=== PATIENT | male | born 2000 | race Caucasian/White ===

== ENCOUNTER 2025-01-24 09:50 | Emergency (ER) | payer BC, SELFPAY ==
[2025-01-24 09:57] VITALS: BP 143/65; PULSE 98; RESP 16; TEMP 36.8; O2SAT 99
--- NOTE | 2025-01-24 10:06 | ED_ITS ---
HPI - URI/Sore Throat General Chief Complaint: Upper Respiratory Infection Stated Complaint: Chest Heavy/Cough Time Seen by Provider: 01/24/25 10:16 Source: patient and RN notes reviewed Mode of arrival: ambulatory Limitations: no limitations History of Present Illness HPI Narrative: 24 y/o male presented for c/o nasal congestion and drainage, body aches, and cough. Onset 2 days. Has not taken anything for symptoms. denies sob, wheezing, n/v/d/f/c. MD elicited complaint: cough Related Data Allergies Allergy/AdvReac Type Severity Reaction Status Date / Time No Known Allergies Allergy Verified 01/24/25 10:01 Review of Systems Review of Systems: CONSTITUTIONAL: Endorses malaise, body aches, denies chills, sweats, fever EYES: Denies visual changes, redness, or discharge ENT: Reports rhinorrhea, congestion, denies sinus pain, otalgia, sore throat CARDIOVASCULAR: Denies chest pain, palpitations, edema RESPIRATORY: Reports cough, post nasal drainage. Denies dyspnea GASTROINTESTINAL: Denies abdominal pain, nausea, vomiting, diarrhea SKIN: Denies rash NEUROLOGIC: Denies headache Exam Narrative: GENERAL: well-appearing, nontoxic no acute distress. EYES: conjunctivae clear ENT: Mucous membranes moist. TM pearly baker with dull light reflex bilaterally; no tragal tenderness. Oropharynx not erythematous without lesions or exudate, no drooling, no hoarseness, no trismus, uvula midline. No tripod positioning, muffled voice, soft palate or pharyngeal wall bulging NECK: Supple. No lymphadenopathy CHEST: Clear to auscultation, breath sounds equal. HEART: Regular rate and rhythm. SKIN: Warm, dry, no rash. NEURO: Alert and oriented x3. PSYCH: Normal mood and affect Course Course Emergency Course: Patient is aware of diagnosis, understands and agrees to treatment plan. Anticipatory guidance given. Patient agrees to follow-up as directed and is aware of reasons to seek care at the emergency department. Portions of this record may have been created with voice recognition software Level of Care: Express Care Visit Vital Signs Vital signs: Vital Signs Temperature 98.3 F 01/24/25 09:57 Pulse Rate 98 01/24/25 09:57 Respiratory Rate 16 01/24/25 09:57 Blood Pressure 143/65 H 01/24/25 09:57 Pulse Oximetry 99 01/24/25 09:57 Oxygen Delivery Room Air 01/24/25 09:57 Temperature 98.3 F 01/24/25 09:57 Pulse Rate 98 01/24/25 09:57 Respiratory Rate 16 01/24/25 09:57 Blood Pressure 143/65 H 01/24/25 09:57 Pulse Oximetry 99 01/24/25 09:57 Oxygen Delivery Room Air 01/24/25 09:57 reviewed MDM - URI/Sore Throat MDM Narrative Medical decision making narrative: Discussed physical exam findings, neg flu and covid. Advised supportive measures and signs/symptoms to go to the ER. Pt is appropriate for outpt treatment and f/u. Differential Diagnosis Differential diagnosis: Likely upper respiratory infection, sinusitis and viral infection Discharge Plan Discharge Clinical Impression: Viral infection Patient Disposition: Home Condition: Stable Instructions: Antibiotic Form, Upper Respiratory Infection (ED) Additional Instructions: Your rapid covid/flu test was negative today. It may be too early to detect the virus, therefore we recommend retesting at home in 1-2 days Continue to follow general precautions: frequent handwashing, wear a mask, isolate/social distance, and avoid crowds if you have a fever. You must be fever free for 24 hours without the use of fever reducing medication (Tylenol/ibuprofen) before returning to work/school/crowds. Recommendations; Flonase spray and Zyrtec (or Claritin/Lanny) over the counter Cough syrup may cause drowsiness; avoid driving or take it at night time. Tylenol 1000mg every 8 hours as needed for pain Symptomatic treatment includes: rest, fluids, and increase humidity of the air at home. Follow up with your primary care provider in 1 week. Go to the ER for worsening symptoms or concerns. Patient Language: Ghanaian Follow-up/Referrals: UNKNOWN,DOCTOR [Primary Care Provider] Time of Disposition: 10:26
[2025-01-24 10:29] LABS: EDCOVIDSCREEN Negative (Negative); EDINFLUASCREEN Negative (Negative); EDINFLUBSCREEN Negative (Negative)
--- OUTSIDE RECORDS SUMMARY | 2025-01-24 10:41 | XMS_ITS | Clinical Summary ---
Author Organization [address] Address [address] [place] [id number] Care Team Providers Care Gas Main And Line Fitter Name Role Phone ANA MARIA Last Jr., Fermín Rboles Primary Care Provide r Ivette Laughlin MD Unavailable [phone] Allergies No known active allergies Medications cholecalciferol (VITAMIN D3) 2,000 unit capsule 1 capsule (2,000 Units total) Active pantoprazole DR (PROTONIX) 20 mg EC tabletIndication s:Gastroesophage al reflux disease without esophagitis Take 1 tablet (20 mg total) by mouth daily 30 tablet 11 12/27/2023 Active omega 5-ecm-sof-fish oil (Fish OiL) 1,000 mg (120 mg-180 mg) capsule Active tasha extract 500 mg capsule Active Active Problems Problem Noted Date Diagnosed Date Et (Eustachian tube disorder), left 08/22/2018 Assessment & Plan (08/22/2018 11:24 AM CDT): Patient/parent was counseled on medication risk, side effects, and possible complications. Patient/parent was counseled on how to properly take the medication and to call with any adverse reactions. Patient/parent stated understanding. If fails may need to see ent Social anxiety disorder 03/02/2018 Assessment & Plan (08/22/2018 11:12 AM CDT): Psychological condition is improving with treatment. Continue current treatment regimen. 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 Treatment: Imaging Ultrasound and Referral Urologist Follow up in 1 month with PCP Situational anxiety 03/02/2018 12/26/19 24 Immunizations Immunization Administration Dates Next Due DTaP 02/09/2005, 0,06/06/1999,04/07/1999, 02/04/1999 Hep A, Pediatric 12/13/2006,01/07/2006 Hep B, Adolescent or Pediatric 12/23/1999,1998,02/04/1999 HiB 12/23/1999,04/07/1999,02/04/1999 IPV 02/09/2005,12/23/1999,04/07/1999 ,02/04/1999 Influenza, Trivalent, IM (MDV) 04/04/2003,2001 Influenza, Unspecified 01/31/2024(Deferr ed: Patient decision),01/24/2024(Deferred: Patient decision),02/20/2023(Deferred: Patient decision),02/20/2023(Deferred: Patient decision) MMR 02/09/2005,12/23/1999 Meningococcal MCV4P (Menactra) 12/27/2015,2012 Pneumococcal Conjugate 7-Valent 06/10/2000,03/04 Tdap 03/15/2010 Varicella 12/13/2006,03/04/2000 Medical History Medical History Date Comments Seasonal allergies Finger fracture, left 2012 salter anna ris II left 5th finger with reduction Concussion 2011 Acne 12/27/2015 ADD (attention deficit disor [place]) without hyperactivity 01/31/2018 Situational anxiety 03/02/2018 Social anxiety disorder 03/02/2018 Vitamin D deficiency 11/21/2017 Family History Medical History Relation Name Comments Colon cancer Maternal Grandfather Rectal cancer Maternal Grandfather Autoimmune disease Maternal Grandmother Breast cancer Maternal Grandmother Sjogren's syndrome Maternal Grandmother Skin cancer Paternal Grandfather Liver cancer Paternal Grandmother Relation Name Status Comments Brother Alive Father Alive Maternal Grandfather Maternal Grandmother Alive Mother Alive palpitations Paternal Grandfather Paternal Grandmother Social History Tobacco Use Types Packs/Day Years Used Date Smoking Tobacco: Never Cigarettes Qu it: 11/2018 Smokeless Tobacco: Never Tobacco Cessation:Counseling Given: Not Answered Alcohol Use Standard Drinks/Week Comments Not Currently 0 (1 standard drink = 0.6 oz pur e alcohol) Socially AUDIT-C Answer Date Recorded Q1: How often do you have a drink containing alc ohol? Monthly or less 01/24/2024 Q2: How many drinks containi ng alcohol do you have on a typical day when you are drinking? 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 Gender Identity Not on file Sexual Orientation Not on file Obstetrics History Last Filed Vital Signs Vital Sign Reading Time Taken Comments Blood Pressure 118/70 01/24/2024 8:35 AM CDT Pulse 89 01/24/2024 8:35 AM CDT Temperature 36.2 C (97.2 F) 01/24/2024 8:35 AM CDT Respiratory Rate 16 01/24/2024 8:35 AM CDT Oxygen Saturation 98% 01/24/2024 8:35 AM CDT Inhaled Oxygen Concentration - - Weight 96.2 kg (212 lb) 01/24/2024 8:35 AM CDT Height 177.8 cm (5' 10) 01/24/2024 8:35 AM CDT Body Mass Index 30.42 01/24/2024 8:35 AM CDT Plan of Treatment Health Maintenance Due Date Last Done Comments Hepatitis C Screening 1998 HPV Vaccines (1 - Male 3-dos e series) 2013 DTaP/Tdap/Td Vaccine (7 - Td or Tdap) 03/15/2020 03/15/2010, 02/09/2005, 03/04/2000, Additional history exists Regular Well Visit/Exam 18-64 12/26/2024 12/27/2023 Influenza Vaccine (#1) 2025 04/04/2003, 2001 Depression Screening 01/23/2025 01/24/2024, 02/03/2019, 02/03/2019, Additional history exists Hepatitis B Screening Completed 12/23/1999 , 04/07/1999, 02/04/1999 Pneumococcal vaccine <65 Completed 06/10/2000, 02/14 Varicella Vaccines Completed 12/13/2006, 03/04/2000 Insurance [employer] OOS Care Teams Gas Main And Line Fitter Relationship Specialty Start Date End Date Fermín Last Jr., PA PCP - General Family Medicine 01/19/19 Ivette Laughlin MD [address] [place] [address] Consulting Physician Family Medicine 01/19/19
== END 2025-01-24 10:33 | disposition home or self-care (01) ==
PROVIDERS: Emergency Provider Nurse Practitioner Family
DX: B34.9 Viral infection, unspecified (principal); Z20.822 Contact with and (suspected) exposure to COVID-19
CPT/HCPCS: 87426; 87804; 99202; G0463

== ENCOUNTER 2025-03-20 08:40 | Emergency (ER) | payer BC, SELFPAY ==
[2025-03-20 08:48] VITALS: BP 139/87; PULSE 77; RESP 18; TEMP 36.4; O2SAT 98
--- NOTE | 2025-03-20 09:00 | ED.URI ---
HPI - URI/Sore Throat General Chief Complaint: Upper Respiratory Infection Stated Complaint: Sore throat Time Seen by Provider: 03/20/25 09:02 Source: patient, RN notes reviewed and old records reviewed Mode of arrival: ambulatory Limitations: no limitations History of Present Illness HPI Narrative: 24 year old male who presents to [facility] care with complaints of sore throat which started about 6 days ago. He reports that on Wednesday he had body aches, chills and fevers which lasted about 24 hours, yesterday he lost his voice and has increased hoarseness, Patient reports that he has been taking cold and flu medication and Ibuprofen. Patient reports that he has also had some runny nose, denies any ear pain or acute cough MD elicited complaint: fever (lasted for 24 hours when first ill), sore throat and rhinorrhea Onset (ago): day(s) (6) Pain scale (0-10): 5 Description of mucous: clear Able to tolerate fluids by mouth: Yes Treatments prior to arrival: ibuprofen and other (cold and flu medication) Related Data Allergies Allergy/AdvReac Type Severity Reaction Status Date / Time No Known Allergies Allergy Verified 03/20/25 08:52 Review of Systems Review of Systems: CONSTITUTIONAL: reports malaise, chills, sweats, or fever for only 24 hours when first ill EYES: Denies visual changes, redness, or discharge. ENT: Reports rhinorrhea, congestion, no sinus pain, no otalgia and positive for sore throat and hoarseness. CARDIOVASCULAR: Denies chest pain, palpitations, or edema. RESPIRATORY: Reports no cough.? Denies dyspnea. GASTROINTESTINAL: Denies abdominal pain, nausea, vomiting, diarrhea SKIN: Denies rash or itching. MUSCULOSKELETAL: Reports myalgia when first ill none now. NEUROLOGIC: reports headache when first ill none now. All systems reviewed & are unremarkable except as noted in HPI and below PMFSH Social History Social History (Updated 03/20/25 @ 09:11 by Naomi Main APRN) Smoking status: Never smoker Alcohol intake: never Substance use: never Living arrangements: with family Gender identity (if verbalized by the patient): Male Comments At time of signature, agree with nursing past medical, surgical, social and family history. There is no relevant family history pertinent to the presenting complaint Exam Narrative: GENERAL: Well-appearing, well-nourished, and in no acute distress. HEAD: Normocephalic EYES: PERRLA, conjunctivae clear ENT: Nares clear, turbinates edematous and erythematous, clear discharge. Mucous membranes moist. TM pearly baker with dull light reflex bilaterally; no tragal tenderness. Oropharynx erythematous without lesions. Tonsils red minimally enlarged and without exudate, no drooling, positive for hoarseness, no trismus, uvula midline.post nasal drainage. NECK: Supple. No lymphadenopathy CHEST: Clear to auscultation, breath sounds equal. No wheezing, rhonchi, rales, or stridor. No respiratory distress, speaks in full sentences. no cough noted SAO2 98% on room air HEART: Regular rate and rhythm. No murmur heard. SKIN: Warm, dry, no rash. NEURO: Alert and oriented x3. PSYCH: Normal mood and affect Course Course Emergency Course: Patient is aware of diagnosis, understands and agrees to treatment plan.? Anticipatory guidance given.? Patient agrees to follow-up as directed and is aware of reasons to seek care at the emergency department. Portions of this record may have been created with voice recognition software Level of Care: Express Care Visit Vital Signs Vital signs: Vital Signs Temperature 36.4 C L 03/20/25 08:48 Pulse Rate 77 03/20/25 08:48 Respiratory Rate 18 03/20/25 08:48 Blood Pressure 139/87 03/20/25 08:48 Pulse Oximetry 98 03/20/25 08:48 Oxygen Delivery Room Air 03/20/25 08:48 Temperature 36.4 C L 03/20/25 08:48 Pulse Rate 77 03/20/25 08:48 Respiratory Rate 18 03/20/25 08:48 Blood Pressure 139/87 03/20/25 08:48 Pulse Oximetry 98 03/20/25 08:48 Oxygen Delivery Room Air 03/20/25 08:48 Reviewed MDM - URI/Sore Throat MDM Narrative Medical decision making narrative: Differential diagnosis considered: Ortega virus, strep pharyngitis, allergic rhinitis, upper respiratory tract infection, sinusitis, rhinosinusitis, nasopharyngitis. viral pharyngitis, otitis media, otitis externa, pneumonia, bronchitis, viral cough syndrome, viral syndrome, and influenza.? Exam findings show no acute concerns or changes; patient is non-toxic appearing and is in no distress.? Patient is appropriate for outpatient treatment and follow-up. Differential Diagnosis Differential diagnosis: Likely upper respiratory infection, sinusitis, viral infection, pharyngitis and other (strep pharyngitis) Medical Records Attestation: I reviewed the patient's medical records. Lab Data Attestation: I reviewed the patient's lab results. Lab results narrative: strep screen positive Labs: Lab Results 03/20/25 Range/Units 09:03 POC Grp A Strep Screen Positive (Negative) reviewed Critical Care Time Critical Care Time Critical Care Time: No Discharge Plan Discharge Clinical Impression: Strep pharyngitis Patient Disposition: Home Condition: Stable Instructions: Antibiotic Form, Strep Throat (ED) Additional Instructions: You tested positive for Group A strep Zyrtec or Claritin or Lanny daily per package instruction for nasal drainage . Take the entire course of antibiotics. Throw away your current toothbrush and begin using a new toothbrush in 48 hours in order to prevent re-infection. Sanitize all reusable water bottles . Do not share items with others. Salt water gargles may alleviate some of the throat discomfort. You can take Tylenol or ibuprofen per the package instructions for pain/fever. If your symptoms persist, change or worsen significantly before you can contact your personal physician then please, without delay, go to the emergency department for further evaluation. Follow-up with PCP in 7-10 days or sooner if needed Follow up with PCP soon in regards to your blood pressure which is elevated above threshold for referral. Blood pressure above 120/80 may indicate pre-hypertension. 139/87 Patient Language: Belarusian Prescriptions: New amoxicillin 500 mg capsule 1,000 mg PO Q12H 10 Days Qty: 40 0RF Rx Instructions: take all of prescription Follow-up/Referrals: PHYSICIAN,TILE PROFESSIONAL [Primary Care Provider, Internal Medicine] Time of Disposition: 09:15 Quality Cheryle Coma Scale Eyes: Open Verbal: Oriented and Alert Motor: Follows Commands Sidney Coma Total Score: 15
[2025-03-20 09:05] LABS: EDSTREPNEGPOS1 Positive (Negative)
--- OUTSIDE RECORDS SUMMARY | 2025-03-20 09:10 | XMS_ITS | Clinical Summary ---
Author Organization [address] Address [address] [place] [id number] Care Team Providers Care Automat Car Attendant Name Role Phone ANA MARIA Last Jr., Fermín Robles Primary Care Provide r Ivette Laughlin MD Unavailable [phone] Allergies No known active allergies Medications cholecalciferol (VITAMIN D3) 2,000 unit capsule 1 capsule (2,000 Units total) Active pantoprazole DR (PROTONIX) 20 mg EC tabletIndication s:Gastroesophage al reflux disease without esophagitis Take 1 tablet (20 mg total) by mouth daily 30 tablet 11 12/27/2023 Active omega 7-uai-kix-fish oil (Fish OiL) 1,000 mg (120 mg-180 [...] on file 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
== END 2025-03-20 09:19 | disposition home or self-care (01) ==
PROVIDERS: Emergency Provider Registered Nurse
DX: J02.0 Streptococcal pharyngitis (principal)
CPT/HCPCS: 87880; 99213; G0463